=== PATIENT | male | born 1955 | race African-American/Black ===

== ENCOUNTER 2017-10-20 11:27 | Emergency (ER) | payer MEDICAID ==
[~2017-10-20] VITALS: Ht 175.3 cm; Wt 99.0 kg
[~2017-10-20 11:27] MED LIST: ASPI-1159 PO; FURO40TA5 PO; LISI-604 PO; METO-539 PO; POTA10CA42 PO
[2017-10-20] MEDS ORDERED: LIDOCAINE HCL 2% JELLY 5ML TOP ONE (12:30)
[2017-10-20 12:51] VITALS: BP 175/100
== END 2017-10-20 12:55 | disposition home or self-care (01) ==
LOC: ER 11:59
DX: B07.9 Viral wart, unspecified (principal); M79.675 Pain in left toe(s); I10 Essential (primary) hypertension; F17.200 Nicotine dependence, unspecified, uncomplicated; Z79.82 Long term (current) use of aspirin
CPT/HCPCS: 99282